=== PATIENT | male | born 2005 | race Caucasian/White ===

== ENCOUNTER 2024-03-08 17:54 | Emergency (ER) | payer OTHER ==
[2024-03-08] MEDS: Lidocaine 1% 10 ML MDV INJECT ONE (19:54)
[2024-03-08] MEDS: Diphtheria,Pertussis(Acell),Tetanus Vaccine 0.5 ML Syringe IM ONE (19:55)
== END 2024-03-08 20:52 | disposition home or self-care (01) ==
LOC: MW.ED 17:54
DX: S61.112A Laceration without foreign body of left thumb with damage to nail, initial encounter (principal); Z23 Encounter for immunization; W20.8XXA Other cause of strike by thrown, projected or falling object, initial encounter
CPT/HCPCS: 12001; 90471; 90715; 99282; 99282-25; J3490